=== PATIENT | female | born 1960 | race Caucasian/White ===

== ENCOUNTER 2018-03-10 06:02 | Day surgery (SDC) | payer BC ==
[2018-03-10] MEDS ORDERED: DIPRIVAN 200 MG/20 ML IV ONE (06:03)
[2018-03-10] MEDS ORDERED: Ketamine HCl 50 MG/ML IJ ONE (06:03)
[2018-03-10] MEDS ORDERED: Lactated Ringers 1,000 ML IV ONE ×2 (06:14→07:26)
[2018-03-10] MEDS ORDERED: Lactated Ringers 1,000 ML IV SCH (06:30)
[2018-03-10 08:59] VITALS: PULSE 59; O2SAT 97
[2018-03-10 09:26] VITALS: BP 119/68
--- NOTE | 2018-03-10 12:25 | OP ---
SURGERY DATE: 03/10/18 SURGERY TIME: 751 PREOPERATIVE DIAGNOSIS: 1. SCREENING EXAM. POSTOPERATIVE DIAGNOSIS: 1. MILD SIGMOID DIVERTICULOSIS, OTHERWISE NORMAL COLON. PROCEDURE: 1. Colonoscopy. SURGEON: Dr. Grvaes. ANESTHESIA: MAC. Medications given by the Anesthesia Department. BRIEF HISTORY: The patient is a 58 y/o WF presenting now for her first screening colonoscopy. She was appraised of the risks of the procedure including the risk of perforation, phlebitis, untoward reaction to medication, bleeding, and missed lesions. The patient verbalized her understanding and desired to have the procedure performed. DESCRIPTION OF PROCEDURE: The patient was given the medications by the Anesthesia Department. She had continuous pulse oximetry, ECG monitoring, intermittent BP monitoring, and end tidal CO2 monitoring during the examination. She was placed in the left lateral decubitus position. A digital rectal examination was performed and revealed normal anal sphincter tone and no masses. The flexible Olympus pediatric colonoscope was used to intubate the rectum. A view of the colon was developed sequentially to the cecum. Upon insertion and withdrawal, including a retroflex view in the rectum, was noted mild to moderate sigmoid diverticulosis. Otherwise, no mucosal lesions were encountered. The scope was removed from the patient who tolerated the procedure well and was sent back to OP recovery in good condition. The prep was noted to be fair.
== END 2018-03-10 09:30 | disposition home or self-care (01) ==
LOC: SDC 06:02
PROVIDERS: ATTEND Family Medicine
DX: Z12.11 Encounter for screening for malignant neoplasm of colon (principal); K57.30 Diverticulosis of large intestine without perforation or abscess without bleeding
CPT/HCPCS: J2704